=== PATIENT | female | born 1970 | race Two or more races ===

== ENCOUNTER 2017-02-25 10:17 | Outpatient (CLI) | payer OTHER ==
[~2017-02-25 10:17] MED LIST: LEVAQUIN500 MG PO; RELAFEN PO; SYNTHROID100 MCG PO
== END 2017-02-25 16:01 | disposition home or self-care (01) ==
LOC: RX STUDY 10:17
DX: C20 Malignant neoplasm of rectum (principal)

== ENCOUNTER 2017-03-02 13:45 | Inpatient (IN) | payer OTHER ==
[~2017-03-02] VITALS: Ht 162.6 cm; Wt 79.8 kg
== END 2017-03-13 16:11 | disposition home or self-care (01) | DRG 940 ==
LOC: SURG 03-10 05:59 → O/R 03-10 05:59 → SURG 03-10 10:24 → SURH 03-10 10:45 → SURG 03-13 16:11
PROVIDERS: Colon & Rectal Surgery
PROC: 0DQB4ZZ Repair Ileum, Percutaneous Endoscopic Approach (ICD-10-PCS; principal; 2017-03-10 10:45)
DX: Z93.2 Ileostomy status (principal); C20 Malignant neoplasm of rectum; N82.3 Fistula of vagina to large intestine; K52.89 Other specified noninfective gastroenteritis and colitis; E03.8 Other specified hypothyroidism

== ENCOUNTER → 2017-11-13 | Day surgery (SDC) | payer OTHER | END | disposition home or self-care (01) | LOC: ADM 11-06 13:15 → AMB-ENDOS 06:10 | DX: C20 Malignant neoplasm of rectum (principal); K64.1 Second degree hemorrhoids ==

== ENCOUNTER 2018-05-24 10:34 | Outpatient (CLI) | payer OTHER | END 2018-05-24 14:08 | disposition home or self-care (01) | LOC: TOM 10:34 | DX: R10.0 Acute abdomen (principal) | CPT/HCPCS: 74178; Q9965 ==

== ENCOUNTER 2018-12-24 06:33 | Day surgery (SDC) | payer OTHER | END 2018-12-24 12:00 | disposition home or self-care (01) | LOC: AMB-ENDOS 06:33 | DX: C20 Malignant neoplasm of rectum (principal); K64.1 Second degree hemorrhoids ==

== ENCOUNTER 2019-08-02 14:08 | Outpatient (CLI) | payer OTHER | END 2019-08-02 14:14 | disposition home or self-care (01) | LOC: LAB 14:08 | PROVIDERS: ATTEND Radiology Diagnostic Radiology | DX: N20.0 Calculus of kidney (principal) ==

== ENCOUNTER → 2019-08-12 | Outpatient (CLI) | payer OTHER | END | disposition home or self-care (01) | LOC: TOM 08-10 08:15 | DX: C18.7 Malignant neoplasm of sigmoid colon (principal) | CPT/HCPCS: 74177; Q9965 ==

== ENCOUNTER 2020-01-13 09:30 | Day surgery (SDC) | payer OTHER | END 2020-01-13 16:05 | disposition home or self-care (01) | LOC: AMB-ENDOS 09:30 | PROVIDERS: ATTEND Colon & Rectal Surgery | DX: K62.89 Other specified diseases of anus and rectum (principal); K64.1 Second degree hemorrhoids; Z20.828 Contact with and (suspected) exposure to other viral communicable diseases ==

== ENCOUNTER → 2020-08-06 14:45 | Outpatient (CLI) | payer OTHER | END | disposition home or self-care (01) | LOC: LAB 14:45 | PROVIDERS: ATTEND Internal Medicine Hematology & Oncology | DX: C18.7 Malignant neoplasm of sigmoid colon (principal) ==

== ENCOUNTER 2020-08-10 08:27 | Outpatient (CLI) | payer OTHER | END 2020-08-10 08:35 | disposition home or self-care (01) | LOC: TOM 08:27 | PROVIDERS: ATTEND Internal Medicine Hematology & Oncology | DX: C18.7 Malignant neoplasm of sigmoid colon (principal) ==